=== PATIENT | female | born 1940 | race Two or more races ===

== ENCOUNTER 2019-02-24 13:52 | Inpatient (IN) | payer MEDICARE, MEDICAID ==
[~2019-02-24] VITALS: Ht 162.6 cm; Wt 36.3 kg
[2019-02-24 17:55] LABS: BASOPHILS % 0.5 % (0.0-2.0); EOSINOPHILS % 0.5 % (0.0-5.0); HEMATOCRIT. 40.9 % (36.0-48.0); HEMOGLOBIN. 13.8 g/dL (12.0-16.0); LYMPHOCYTES % 32.9 % (20.0-50.0); MEAN CORPUSCULAR HEMOGLOBIN 31.8 pg (28.0-32.0); MEAN CORPUSCULAR VOLUME 94.4 fL (81.0-99.0); MEAN PLATELET VOLUME 11.7 fl (7.4-10.4); MONOCYTES % 5.8 % (2.0-8.0); NEUTROPHILS % 60.3 % (40.0-76.0); PLATELET 148 x1000/uL (130-400); RED BLOOD CELL COUNT 4.34 mill/uL (4.2-5.4); RED CELL DISTRIBUTION WIDTH 13.8 % (11.6-14.6)
[2019-02-24 18:01] LABS: CHLORIDE 104 mEq/L (98-107)
[2019-02-24 18:14] LABS: PROTHROMBIN TIME 10.2 sec (9.6-11.0)
[2019-02-24] MEDS ORDERED: CEFTRIAXONE 1 G PREMIX 50 ML IV ONE (18:30)
[2019-02-24] MEDS ORDERED: POTASSIUM CHLORIDE INJ 30 MEQ in DEXT 5%/0.9% NACL 1,000 ML IV ONE (18:30)
[2019-02-24] MEDS ORDERED: AMLODIPINE 5MG TABLET PO ONE (18:45)
[2019-02-24] MEDS ORDERED: ASPIRIN 81MG TABLET PO ONE (18:45)
[2019-02-24 18:49] LABS: CLARITY URINE CLEAR (CLEAR); COLOR URINE YELLOW (YELLOW); KETONES URINE NEGATIVE (NEGATIVE); LEUKOCYTE ESTERASE URINE NEGATIVE (NEGATIVE); NITRITE URINE NEGATIVE (NEGATIVE); OCCULT BLOOD URINE NEGATIVE (NEGATIVE); PH URINE 7.5 (4.5-8.0); PROTEIN URINE 1+ (NEGATIVE); SPECIFIC GRAVITY URINE 1.012 (1.005-1.030)
[2019-02-24] MEDS ORDERED: GUAIFENESIN 200MG/10ML SUGAR FREE UDC PO PRN (21:45)
[2019-02-24] MEDS ORDERED: HYDRALAZINE 20MG/ML VIAL IV PRN (21:45)
[2019-02-24] MEDS ORDERED: DIPHENHYDRAMINE 50MG/ML VIAL IV PRN (21:45)
[2019-02-24] MEDS ORDERED: CLONIDINE 0.1MG TABLET PO PRN (21:45)
[2019-02-24] MEDS ORDERED: MAGNESIUM/ALUMINUM HYDROXIDE/SIMETHICONE 30ML UDC PO PRN (21:45)
[2019-02-24] MEDS ORDERED: NA PHOS,M-B/NA PHOS,DI-BA ENEMA 118ML PR PRN (21:45)
[2019-02-24] MEDS ORDERED: ACETAMINOPHEN 650MG SUPP PR PRN (21:45)
[2019-02-24] MEDS ORDERED: ACETAMINOPHEN 325MG TABLET PO PRN (21:45)
[2019-02-24] MEDS ORDERED: DOCUSATE SODIUM 100MG CAPSULE PO PRN (21:45)
[2019-02-24] MEDS ORDERED: ACETAMINOPHEN 650MG/20.3ML UDC GT PRN (21:45)
[2019-02-24] MEDS ORDERED: IPRATROPIUM/ALBUTEROL 0.5-3(2.5)MG/3ML NEB HHN PRN (21:45)
[2019-02-24 23:13] VITALS: BP 144/77
[2019-02-25] MEDS: BENAZEPRIL 5MG TABLET PO SCH ×2 (00:35→09:57)
[2019-02-25] MEDS: AMLODIPINE 10MG TABLET PO SCH ×2 (00:35→09:56)
[2019-02-25] MEDS: SODIUM CHLORIDE 0.9% INJ 3ML FLUSH IVF SCH ×4 (00:43→20:12)
[2019-02-25 00:58] LABS: CREATINE KINASE MB FRACTION 1.5 ng/mL (0.5-3.6)
[2019-02-25 04:00] VITALS: BP 130/65
[2019-02-25 07:24] LABS: BASOPHILS % 0.7 % (0.0-2.0); EOSINOPHILS % 1.1 % (0.0-5.0); HEMATOCRIT. 36.4 % (36.0-48.0); HEMOGLOBIN. 12.5 g/dL (12.0-16.0); LYMPHOCYTES % 27.9 % (20.0-50.0); MEAN CORPUSCULAR HEMOGLOBIN 32.2 pg (28.0-32.0); MEAN CORPUSCULAR VOLUME 94.1 fL (81.0-99.0); MEAN PLATELET VOLUME 12.1 fl (7.4-10.4); MONOCYTES % 6.7 % (2.0-8.0); NEUTROPHILS % 63.6 % (40.0-76.0); PLATELET 143 x1000/uL (130-400); RED BLOOD CELL COUNT 3.87 mill/uL (4.2-5.4); RED CELL DISTRIBUTION WIDTH 13.8 % (11.6-14.6)
[2019-02-25 07:41] LABS: CHLORIDE 109 mEq/L (98-107)
[2019-02-25 07:57] LABS: CREATINE KINASE 73 IU/L (26-192); LDL CHOLESTEROL 76 mg/dL (5-100)
[2019-02-25 07:58] LABS: HDL CHOLESTEROL 106 mg/dL (40-59)
[2019-02-25 08:00] VITALS: BP 117/62
[2019-02-25 08:01] LABS: CREATINE KINASE MB FRACTION 1.1 ng/mL (0.5-3.6)
[2019-02-25] MEDS ORDERED: POTASSIUM CHLORIDE 20MEQ TABLET SR PO NR (09:00)
[2019-02-25] MEDS: ENOXAPARIN 40MG/0.4ML SYR SUBCUT SCH (09:58)
[2019-02-25 12:00] VITALS: BP 120/67
[2019-02-25 12:05] LABS: *BARBITURATES SCREEN URINE NEGATIVE (NEGATIVE)
[2019-02-25 12:07] LABS: CANNABINOID URINE SCREEN NEGATIVE (NEGATIVE); PHENCYCLIDINE URINE SCREEN NEGATIVE (NEGATIVE)
[2019-02-25 12:08] LABS: *AMPHETAMINES SCREEN URINE NEGATIVE (NEGATIVE); *BENZODIAZEPINES SCREEN URINE NEGATIVE (NEGATIVE)
[2019-02-25 12:09] LABS: *COCAINE SCREEN URINE NEGATIVE (NEGATIVE)
[2019-02-25 12:10] LABS: METHADONE URINE SCREEN NEGATIVE (NEGATIVE); OPIATES URINE SCREEN NEGATIVE (NEGATIVE)
[2019-02-25 16:00] VITALS: BP 128/98
[2019-02-25] MEDS ORDERED: POTASSIUM CHLORIDE 20MEQ TABLET SR PO PRN (17:30)
[2019-02-25 20:00] VITALS: BP 137/75
[2019-02-26] VITALS (7 sets, daily range): BP systolic 113–159; BP diastolic 64–85
[2019-02-26] MEDS: SODIUM CHLORIDE 0.9% INJ 3ML FLUSH IVF SCH ×2 (05:02→15:49)
[2019-02-26 07:20] LABS: CHLORIDE 107 mEq/L (98-107)
[2019-02-26] MEDS: AMLODIPINE 10MG TABLET PO SCH (08:54)
[2019-02-26] MEDS: BENAZEPRIL 5MG TABLET PO SCH (08:54)
[2019-02-26] MEDS: ENOXAPARIN 40MG/0.4ML SYR SUBCUT SCH (08:55)
== END 2019-02-26 20:30 | disposition home or self-care (01) | DRG 640 ==
LOC: ER 16:54 → EDBEDREQ 21:19 → EDBEDREQTM 21:19 → ENRESERV 21:29 → 6WST 21:42
PROVIDERS: ADMIT Family Medicine; ATTEND Family Medicine
DX: E87.6 Hypokalemia (principal); G93.41 Metabolic encephalopathy; I16.0 Hypertensive urgency; E86.0 Dehydration; H54.7 Unspecified visual loss; F03.90 Unspecified dementia, unspecified severity, without behavioral disturbance, psychotic disturbance, mood disturbance, and anxiety; Z74.01 Bed confinement status
CPT/HCPCS: 36415; 71045; 80048; 80061; 80305; 81003; 82550; 82553; 84484; 93005; 93306; 96365; 99285; J0360; J0696; J1650; J3480; J7042